=== PATIENT | male | born 1975 | race Two or more races ===

== ENCOUNTER 2023-06-26 12:01 | Emergency (ER) | payer OTHER, MEDICAID, SELFPAY ==
[2023-06-26 12:37] VITALS: BP 162/94; PULSE 74; RESP 18; TEMP 37.2; O2SAT 99; BMI 30.1
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
[2023-06-26 13:11] VITALS: BP 162/94; PULSE 74; RESP 18; TEMP 37.2; O2SAT 99
== END 2023-06-26 13:12 | disposition home or self-care (01) ==
PROVIDERS: Emergency Provider Emergency Medicine; PCP Internal Medicine
DX: S16.1XXA Strain of muscle, fascia and tendon at neck level, initial encounter (principal); S33.5XXA Sprain of ligaments of lumbar spine, initial encounter; S80.02XA Contusion of left knee, initial encounter; V43.12XA Car passenger injured in collision with other type car in nontraffic accident, initial encounter; M54.50 Low back pain, unspecified; E78.5 Hyperlipidemia, unspecified; Y92.481 Parking lot as the place of occurrence of the external cause; Y93.9 Activity, unspecified; Y99.9 Unspecified external cause status
CPT/HCPCS: 99282; 99283